=== PATIENT | male | born 1990 | race Hispanic/Latino ===

== ENCOUNTER 2020-03-09 | Emergency (ER) | payer OTHER ==
[2020-03-09] MEDS ORDERED: ACETAMINOPHEN EXTRA STRENGTH 500 MG TABLET ONE (00:11)
== END 2020-03-09 01:04 | disposition home or self-care (01) ==
LOC: EDH
DX: S20.211A Contusion of right front wall of thorax, initial encounter (principal); W51.XXXA Accidental striking against or bumped into by another person, initial encounter; Y93.89 Activity, other specified; Y92.89 Other specified places as the place of occurrence of the external cause; Y99.8 Other external cause status
CPT/HCPCS: 71101